=== PATIENT | female | born 1945 | race Caucasian/White ===

== ENCOUNTER → 2017-04-28 | Day surgery (SDC) | payer MEDICARE, BC ==
[~2017-04-28] MED LIST: ALEV220T14 PO; BUPIVACAINE HCL PF 0.5% 30 ML VIAL ONE; CHOL10008 PO; DIPH25CA PO; ESTR1TAB PO; IBUP1TAB7 PO; IMIT100T PO; LEVO112T2 PO; METO25TA3 PO; PROPOFOL 200 MG/20 ML AMP IV ONE; TRIAMCINOLONE ACETONIDE 40 MG/ML VIAL I-ARTICULR ONE; WHEA1POW9 PO; methylPREDNISolone ACETATE 40 MG/ML VIAL I-ARTICULR ONE
--- NOTE | 2017-05-01 13:26 | M6 ---
cc: Jonathan GARCÍA DATE: 04/28/2017. DATE OF : 1945. PROCEDURE PERFORMED: Fluoroscopically-guided injection left hip joint. DESCRIPTION OF THE PROCEDURE IN DETAIL: History and physical was completed and signed. Consent was signed. Procedure site was marked. Medications were listed and reconciled. Pain score was recorded. Allergies were noted. Time out was taken. Fluoroscopy time was recorded where applicable. Sedation was administered or directed by Dr. García. The patient was given oxygen. The patient was monitored by a registered nurse. Total procedure time was greater than 15 minutes. IV was started, blood pressure cuff, pulse oximeter and EKG were applied. The patient was placed in a supine position on a Ed table and sedated with small amounts of propofol titrated to effect. Vital signs were monitored and remained stable throughout the procedure. The left hip area was prepped with alcohol and 10% Betadine solution and draped with sterile drapes. Fluoroscopy was used to visualize the acetabulum. Then a 3-1/2 inch 22-gauge spinal needle was advanced into the cephalad portion of the acetabulum. There was negative aspiration for blood or any other type of fluid and the patient was given 3 mL of 0.5% Marcaine, 20 milligrams of Depo-Medrol and 20 milligrams of Kenalog. Following the procedure, the patient was taken to the recovery room with stable vital signs neurologically intact. She will be evaluated immediately and with followup to determine if she has a subjective decrease in her usual pain and a corresponding objective increase in her functional capabilities. MD RADHA Vee/NANCY /8:23 AM /1:21 PM
== END | disposition home or self-care (01) ==
LOC: PHSDC 06:42
PROVIDERS: ATTEND Pain Medicine Interventional Pain Medicine
DX: M25.552 Pain in left hip (principal)
CPT/HCPCS: 20610; 99152; J1030; J3301